=== PATIENT | male | born 1980 | race Caucasian/White ===

== ENCOUNTER 2021-12-26 18:02 | Emergency (ER) | payer BC ==
[~2021-12-26] VITALS: Ht 182.9 cm; Wt 90.2 kg
[2021-12-26] MEDS ORDERED: diphenhydrAMINE 50MG/ML VIAL (J1200) IV STA (18:07)
[2021-12-26] MEDS ORDERED: methylPREDNISolone 125MG 2ML VIAL IV ONE (18:10)
[2021-12-26] MEDS ORDERED: NS 1,000 ML IV ONE (18:10)
[2021-12-26] MEDS ORDERED: PRED10TA2 PO (19:23)
[2021-12-26 19:45] VITALS: BP 117/78
== END 2021-12-26 19:47 | disposition home or self-care (01) ==
LOC: M ED 18:02
DX: T63.441A Toxic effect of venom of bees, accidental (unintentional), initial encounter (principal); R22.0 Localized swelling, mass and lump, head; F17.200 Nicotine dependence, unspecified, uncomplicated; Z91.018 Allergy to other foods
CPT/HCPCS: 96361; 96374; 96375; 99284; J1200; J2930